=== PATIENT | female | born 2000 | race Caucasian/White ===

== ENCOUNTER 2024-07-28 15:11 | Outpatient (AMB) | payer MEDICAID, SELFPAY ==
--- NOTE | 2024-07-28 15:23 | OBCLNT_ITS ---
Vital Signs 07/28/24 16:09 Height 1.65 m Height Method Stated Weight 90.038 kg Weight Measurement Method Standing Scale BMI 33.0 BP 116/70 Blood Pressure Source Automatic Cuff Blood Pressure Location Left Upper Arm Position Sitting Respiration 18 Pulse 72 Pulse Source Monitor Temp 98 F Temp Source Oral Pulse Oximetry (%) 99 Oxygen Delivery Method Room Air Allergies/Home Meds Allergies & Medications Allergies No Known Allergies Allergy (Verified 07/28/24 15:23) Medication Reconciliation prenat.vits,ambrosio,[id number] 1 tab PO QDAY 08/13/20 [History Confirmed 07/28/24] Intake Visit Data Collection New Patient or Established: Established Patient (seen at [facility] within 3 years) Reason for Visit:: obi Do You Feel Safe at Home: Yes Authorities Contacted: N/A PCP or OBGYN visit in last 3 months: Yes Last menstrual period: 01/06/24 Pain Present Currently: No Smoking Status Smoking Status: Never smoker Questionnaires Covid-19 Vaccine Questionnaire Has patient been vacinated for Covid-19 Have you been vacinated for Covid-19: No PHQ-9 PHQ-2 Over the last 2 weeks, how often have you been bothered by any of the following problems? 1. Little interest or pleasure in doing things: not at all 2. Feeling down, depressed, or hopeless: not at all Total score: 0 Depression screen completed yes Social History Living Situation History Marital Status: Life Partner Lives With: Family Housing: trailer Tobacco History Smoking Status: Never smoker Alcohol History Alcohol Intake: Never Domestic Abuse History Do You Feel Safe at Home: Yes History of Present Illness HPI Narrative 23-year-old 2 para 1 for OB transfer. Patient has been followed at [facility] for care. Her first visit was in the first trimester. Her last ultrasound at [facility] was June 09 so I called for those results. Patient has done a medical release. Records are still not in the chart. Patient denies social habits. Denies surgery. Denies chronic illness. She reports movement. She has complains of backache and other third trimester discomforts. Her last period January 05, 2025. And the TYRESE is October 10, 2024. Patient reports that she recently had her Glucola done and it was normal and she has had no problems with the . Declined Tdap today OB Initial Visit OB Flowsheet OB Flowsheet Initial Weight: Not Recorded Date -?-?-?-?-?-?-?-?-?-?-?-?- EGA Weight Edema CTX Effacement BP Fundal ht Pres Dilation Effacement Station Visit Note Alb Glu FHR Mov 07/28/24 -?-?-?-?-?-?-?-?-?-?-?-?- 29w 1d 90.038 kg absent absent 116/70 29 cephalic 23-year-old 2 para 1 transfer from [facility]. Patient had her first visit in the first trimester. Her last period January 05, 2025. EDC October 10, 2024. Records are not in the chart but patient reports that she has had a medical release to have the records sent. Reports movement. Denies labor. I called [facility] for patient's last ultrasound that was done June 09. I encourage fluids and I gave comfort measures for third trimester discomforts. Patient refused Tdap today. And I discussed labor precautions. Patient to return in 3 weeks for OB check. 145 active Menstrual History Menstrual reliability: definite Flow: normal Menstrual regularity: regular Monthly: Yes Age at menarche: 14 On control pills at conception: No Date of positive home test: 01/08/24 OB History : 2 Para: 1 # of Living Children: 1 Delivery History 1st : Child's name: jack date: 08/29/20 sex: male Delivery type: vaginal weight (lbs): 2721.554 g weight (oz): 311.845 g History of depression before or after : No Infection History & Risk Evaluation History of STDs: none HIV risk evaluation: low risk Hepatitis B risk evaluation: low risk Patient or partner has history of Genital Herpes: No Varicella/chicken pox status: immunized Genetic Screening & History Genetic Screening/Teratology Counseling - Includes patient, baby's father, or anyone in either family with: 1. Patient's age 35 years or older as of estimated date of delivery: No 2. Thalassemia (Cypriot, Welsh, Mediterranean, or Background); MCV less than 80: No 3. Neural Tube Defect (Meningomyelocele, Spina Bifida, or Anencephaly): No 4. Congenital Heart Defect: No 5. Down Syndrome: No 6. Chip-Sachs (Ashkenazi Cheondoism, Cajun, Vietnamese Boyle): No 7. Marcelino Disease (Ashkenazi Cheondoism): No 8. Familial Dysautonomia (Ashkenazi Cheondoism): No 9. Sickle Cell Disease or Trait (): No 10. Hemophilia or other blood disorders: No 11. Muscular Dystrophy: No 12. Cystic Fibrosis: No 13. Gisela's Chorea: No 14. Mental Retardation/Autism: No 15. Other inherited genetic or chromosomal disorder: No 16. Maternal Metabolic Disorder (EG,TYPE 1 Diabetes, PKU): No 17. Patient or baby's father had a child with defects not listed above: No 18. Recurrent loss or a stillbirth: No 19. Medications (including supplements, vitamins, herbs or otc drugs)/illicit/recreational drugs/alcohol since last menstrual period: No 20. Any other: No Infection History 1. Live with someone with TB or exposed to TB: No 2. Rash or viral illness since last menstrual period: No 3. Hepatitis B,C: No Other (see comments) Source: [employer] Review of Systems Review of Systems Systems Reviewed: All systems reviewed, normal except as documented Exam General Limitations: no limitations General Appearance: alert, in no apparent distress, comfortable, cooperative, healthy appearing, well developed and well groomed Head Head exam: atraumatic, normocephalic and normal inspection Chest Chest inspection: Present normal inspection and symmetric chest wall rise Resp Respiratory exam: Present normal lung sounds bilaterally Card Cardiovascular exam: Present regular rate, normal rhythm and normal heart sounds Abdominal Abdominal exam: Present soft and normal bowel sounds Psych Psychiatric exam: Present normal affect and normal mood Assessment & Plan Diagnosis / Problem List (1) Encounter for supervision of normal in multigravida in third trimester: Status: Acute Plan call for sono results done 06/09, medical release from [facility] for records. ptl precaution, continue PNV, Increase fluid, patient declined TDAP. 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
[2024-07-28 16:09] VITALS: BP 116/70; PULSE 72; RESP 18; TEMP 36.6; O2SAT 99; BMI 33.0
== END 2024-07-28 15:42 | disposition home or self-care (01) ==
LOC: HODSOBC 15:11
PROVIDERS: Supervising Provider Advanced Practice Midwife; Visit Provider Advanced Practice Midwife
DX: Z34.83 Encounter for supervision of other normal pregnancy, third trimester (principal); Z3A.29 29 weeks gestation of pregnancy
CPT/HCPCS: 99204; G0463

== ENCOUNTER 2024-08-18 14:57 | Outpatient (AMB) | payer MEDICAID, SELFPAY ==
[2024-08-18 15:38] VITALS: BP 109/70; PULSE 90; RESP 18; TEMP 36.6; O2SAT 97; BMI 32.1
--- NOTE | 2024-08-18 15:38 | OBCLNT_ITS ---
Vital Signs 08/18/24 15:38 Height 1.65 m Height Method Stated Weight 87.657 kg Weight Measurement Method Standing Scale BMI 32.1 BP 109/70 Blood Pressure Source Automatic Cuff Blood Pressure Location Right Upper Arm Position Sitting Respiration 18 Pulse 90 Pulse Source Monitor Temp 98 F Temp Source Oral Pulse Oximetry (%) 97 Oxygen Delivery Method Room Air Allergies/Home Meds Allergies & Medications Allergies No Known Allergies Allergy (Verified 08/18/24 15:39) Medication Reconciliation prenat.vits,ambrosio,[id number] 1 tab PO QDAY 08/13/20 [History Confirmed 08/18/24] Intake Visit Data Collection New Patient or Established: Established Patient (seen at [facility] within 3 years) Reason for Visit:: CARE Seen by Clinical Staff ONLY (RN/MA): No Voip Network Technician Required: No Do You Feel Safe at Home: Yes Authorities Contacted: N/A PCP or OBGYN visit in last 3 months: Yes Hx Now: Yes Are you currently on any form of Control: No Pain Present Currently: No Pain Scale Used: Ortega-Ivy/Numerical Pain scale:: 0 Smoking Status Smoking Status: Never smoker Questionnaires Covid-19 Vaccine Questionnaire Has patient been vacinated for Covid-19 Have you been vacinated for Covid-19: Yes PHQ-9 PHQ-2 Over the last 2 weeks, how often have you been bothered by any of the following problems? 1. Little interest or pleasure in doing things: not at all 2. Feeling down, depressed, or hopeless: not at all Total score: 0 PHQ-9 3. Trouble falling or staying asleep, or sleeping too much: Not at all 4. Feeling tired or having little energy: Not at all 5. Poor appetite or overeating: Not at all 6. Feeling bad about yourself - or that you are a failure or have let yourself or your family down: Not at all 7. Trouble concentrating on things, such as reading the newspaper or watching television: Not at all 8. Moving or speaking so slowly that other people could have noticed? - Or the opposite - being so fidgety or restless that you have been moving around a lot more than usual: not at all 9. Thoughts that you would be better off or of hurting yourself in some way: Not at all Total score: 0 Source: Developed by Drs. Vikram Zaman, Amaya Cantu, Attila Lopez and colleagues, with an educational elizabeth from [employer]. 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 Patient had her first visit in the first trimester. Her last period January 05, 2025. EDC October 10, 2024. Records are not in the chart but patient reports that she has had a medical release to have the records sent. Reports movement. Denies labor. I called [facility] for patient's last ultrasound that was done June 09. I encourage fluids and I gave comfort measures for third trimester discomforts. Patient refused Tdap today. And I discussed labor precautions. Patient to return in 3 weeks for OB check. 08/18/24 -?-?-?-?-?-?-?-?-?-?-?-?- 31w 2d 87.657 kg 109/70 occasional cephalic 31 135 increased BH, no LOF,no VB, fetus active reviewed dates, [facility] sono: 3edd 10/21/24. sono for growth NV, hydrate. discuss PTL precaution, schedule with OB PP for BTL. ok to sign BTL consent in case of primary c/s. refused TDAP. will call for records. discuss PTL precaution and fkc biD. RTC 2 week OBC TYRESE Calculator Estimated Delivery Date Method Current WG Current Estimate 10/18/24 Ultrasound #1 31w 2d Other Estimates 10/12/24 LMP (Certain) 32w 1d Notes Visit Date: 08/18/24 Last Updated by: Montse Howe CNM [facility] sono 06/09/24: 21w2. EDC : 10/20/24(CEDD). 23 yo Visit Date: 07/28/24 Last Updated by: Montse Howe CNM 23 yo . lmp 01/05/25. EDC 10/10/24 Office Procedures OB Clinic LOC & Office Proc's Nursing/Assessment Patient Status: Established Patient OB Clinic Nursing Assessment: Medication Reconciliation, Update PMH in EMR and Vital Signs OB Clinic Coordination of Care: Complex Care and Chronic Disease 1-5, Consent,records obtained, informed consent, Education Simp Pt/Fam, Lab and Imaging orders, Results/Orders obtained and Staff clarify orders Special Needs: Heart tones Established Patient Charge Established Patient Point Assignment: 135 Established Patient Point Charge: EP Level 4 (120-155) Assessment & Plan Diagnosis / Problem List (1) Encounter for supervision of normal in multigravida in third trimester: Status: Acute Plan ptl precaution, discuss fkc, increase fluid. patient to see OB for BTL consent. sign consent nvcontinue PNV, RTC 2 week, sono for growth NV Additional Plan Follow Up: 2 Weeks (obc)
== END 2024-08-18 16:13 | disposition home or self-care (01) ==
LOC: HODSOBC 14:57
PROVIDERS: Supervising Provider Advanced Practice Midwife; Visit Provider Advanced Practice Midwife
DX: Z34.83 Encounter for supervision of other normal pregnancy, third trimester (principal); Z3A.31 31 weeks gestation of pregnancy; Z28.21 Immunization not carried out because of patient refusal
CPT/HCPCS: 99214; G0463

== ENCOUNTER 2024-09-01 14:32 | Outpatient (AMB) | payer MEDICAID, SELFPAY ==
[2024-09-01 15:27] VITALS: BP 109/67; PULSE 79; RESP 18; TEMP 36; O2SAT 98; BMI 32.6
--- NOTE | 2024-09-01 15:27 | AMB.OBVISIT ---
Vital Signs 09/01/24 15:27 Height 1.65 m Height Method Stated Weight 88.904 kg Weight Measurement Method Standing Scale BMI 32.6 BP 109/67 Blood Pressure Source Automatic Cuff Blood Pressure Location Left Upper Arm Position Sitting Respiration 18 Pulse 79 Pulse Source Monitor Temp 96.8 F Temp Source Oral Pulse Oximetry (%) 98 Oxygen Delivery Method Room Air Allergies/Home Meds Allergies & Medications Allergies No Known Allergies Allergy (Verified 09/01/24 15:27) Medication Reconciliation prenat.vits,ambrosio,qzi-bhlv-eewne 1 tab PO QDAY 08/13/20 [History Confirmed 09/01/24] Intake Visit Data Collection New Patient or Established: Established Patient (seen at [facility] within 3 years) Reason for Visit:: OBC Seen by Clinical Staff ONLY (RN/MA): No Senior 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 1. Little interest or pleasure in doing things: not at all 2. Feeling down, depressed, or hopeless: not at all Total score: 0 PHQ-9 3. Trouble falling or staying asleep, or sleeping too much: Not at all 4. Feeling tired or having little energy: Not at all 5. Poor appetite or overeating: Not at all 6. Feeling bad about yourself - or that you are a failure or have let yourself or your family down: Not at all 7. Trouble concentrating on things, such as reading the newspaper or watching television: Not at all 8. Moving or speaking so slowly that other people could have noticed? - Or the opposite - being so fidgety or restless that you have been moving around a lot more than usual: not at all 9. Thoughts that you would be better off or of hurting yourself in some way: Not at all Total score: 0 If you checked off any problems, how difficult have these problems made it for you to do your work, take care of things at home, or get along with other people?: not difficult at all Source: Developed by Drs. Vikram Zaman, Amaya Cantu, Attila Lopez and colleagues, with an educational elizabeth from [employer]. 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 Patient had her first visit in the first trimester. Her last period January 05, 2025. EDC October 10, 2024. Records are not in the chart but patient reports that she has had a medical release to have the records sent. Reports movement. Denies labor. I called [facility] for patient's last ultrasound that was done June 09. I encourage fluids and I gave comfort measures for third trimester discomforts. Patient refused Tdap today. And I discussed labor precautions. Patient to return in 3 weeks for OB check. 08/18/24 <del>?</del> 31w 2d 87.657 kg 109/70 occasional cephalic 31 135 increased BH, no LOF,no VB, fetus active reviewed dates, [facility] sono: 3edd 10/21/24. sono for growth NV, hydrate. discuss PTL precaution, schedule with OB PP for BTL. ok to sign BTL consent in case of primary c/s. refused TDAP. will call for records. discuss PTL precaution and fkc biD. RTC 2 week OBC 09/01/24 <del>?</del> 33w 2d 88.904 kg 109/67 occasional cephalic 33 135 active increased ayaka ick, no VB or LOF, fetus active. patient desire BTL refused TDAP schedule sono for growth, discuss ptl precaution, hydrate. f/u with OB for tubal consent. rtc 4 week OBC and GBS TYRESE Calculator Estimated Delivery Date Method Current WG Current Estimate 10/18/24 Ultrasound #1 33w 2d Other Estimates 10/12/24 LMP (Certain) 34w 1d Notes Visit Date: 09/01/24 Last Updated by: Montse Howe CNM 23 y0 EDC 10/18/24. /, A1: 5.3, rpr:: NR, 1 hr gtt [id number]-DUD-,CF-O+,abs-, rpr;;nr, HBSAG-,HIV-, HC-, rub imm, GC/CT-, UT-, pap neg Visit Date: 08/18/24 Last Updated by: Montse Howe CNM [facility] sono 06/09/24: 21w2. EDC : 10/20/24(CEDD). 23 yo Visit Date: 07/28/24 Last Updated by: Montse Howe CNM 23 yo . lmp 01/05/25. EDC 10/10/24 Office Procedures OB Clinic LOC & Office Proc's Nursing/Assessment Patient Status: Established Patient OB Clinic Nursing Assessment: Medication Reconciliation, Update PMH in EMR and Vital Signs OB Clinic Coordination of Care: Education Complex Pt/Fam, Consent,records obtained, informed consent, Lab and Imaging orders, Results/Orders obtained and Staff clarify orders Special Needs: Heart tones Established Patient Charge Established Patient Point Assignment: 115 Established Patient Point Charge: EP Level 3 (80-115) Assessment & Plan Diagnosis / Problem List (1) Encounter for supervision of normal in multigravida in third trimester: Status: Acute Plan discuss PTL precaution, fkc bid reviewed, decline TDAP, schedule with OB for BTL consent, hydrate, schedule sono for growth, RTC 4 week for OBC and GBS Additional Plan Follow Up: 4 Weeks (obc)
== END 2024-09-01 15:19 | disposition home or self-care (01) ==
LOC: HODSOBC 14:32
PROVIDERS: Supervising Provider Advanced Practice Midwife; Visit Provider Advanced Practice Midwife
DX: Z34.83 Encounter for supervision of other normal pregnancy, third trimester (principal); Z3A.33 33 weeks gestation of pregnancy; Z28.21 Immunization not carried out because of patient refusal
CPT/HCPCS: 99213; G0463

== ENCOUNTER 2024-09-16 13:39 | Outpatient (AMB) | payer MEDICAID, SELFPAY ==
[2024-09-16 14:00] VITALS: BP 113/67; PULSE 79; RESP 17; TEMP 36.4; O2SAT 96; BMI 32.8
--- NOTE | 2024-09-16 14:00 | AMB.OBVISIT ---
Vital Signs 09/16/24 14:00 Height 1.65 m Height Method Stated Weight 89.471 kg Weight Measurement Method Standing Scale BMI 32.8 BP 113/67 Blood Pressure Source Automatic Cuff Blood Pressure Location Right Upper Arm Position Sitting Respiration 17 Pulse 79 Pulse Source Monitor Temp 97.6 F Temp Source Temporal Artery Scan Pulse Oximetry (%) 96 Oxygen Delivery Method Room Air Allergies/Home Meds Allergies & Medications Allergies No Known Allergies Allergy (Verified 09/16/24 14:23) Medication Reconciliation prenat.vits,ambrosio,vnn-kuwa-zldgc 1 tab PO QDAY 08/13/20 [History Confirmed 09/16/24] Intake Visit Data Collection New Patient or Established: Established Patient (seen at [facility] within 3 years) Reason for Visit:: OBC/ GBS Seen by Clinical Staff ONLY (RN/MA): No 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 1. Little interest or pleasure in doing things: not at all 2. Feeling down, depressed, or hopeless: not at all Total score: 0 PHQ-9 3. Trouble falling or staying asleep, or sleeping too much: Not at all 4. Feeling tired or having little energy: Not at all 5. Poor appetite or overeating: Not at all 6. Feeling bad about yourself - or that you are a failure or have let yourself or your family down: Not at all 7. Trouble concentrating on things, such as reading the newspaper or watching television: Not at all 8. Moving or speaking so slowly that other people could have noticed? - Or the opposite - being so fidgety or restless that you have been moving around a lot more than usual: not at all 9. Thoughts that you would be better off or of hurting yourself in some way: Not at all Total score: 0 If you checked off any problems, how difficult have these problems made it for you to do your work, take care of things at home, or get along with other people?: not difficult at all Source: Developed by Drs. Vikram Zaman, Amaya Cantu, Attila Lopez and colleagues, with an educational elizabeth from [employer]. 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 No contractions, LOF, VB and reports good FM. Denies SMITH, VC, and epigastric pain. - Shell Ruelas is a 24-year-old presenting for routine care at 36 weeks and 2 days gestation. - has been uncomplicated thus far. - Patient reports: - No contractions - No problems - Baby is active - Denies: - Leaking fluid - Bleeding Care OB Visit Log OB Flowsheet Initial Weight: Not Recorded Date <del>?</del> EGA Weight BP Alb Glu CTX Pres Fundal ht FHR Mov Dilation Station Effacement Hx Notes Visit Note 07/28/24 <del>?</del> 29w 1d 90.038 kg 116/70 absent cephalic 29 145 active 23-year-old 2 para 1 transfer from [facility]. Patient had her first visit in the first trimester. Her last period January 05, 2025. EDC October 10, 2024. Records are not in the chart but patient reports that she has had a medical release to have the records sent. Reports movement. Denies labor. I called [facility] for patient's last ultrasound that was done June 09. I encourage fluids and I gave comfort measures for third trimester discomforts. Patient refused Tdap today. And I discussed labor precautions. Patient to return in 3 weeks for OB check. 08/18/24 <del>?</del> 32w 1d 87.657 kg 109/70 occasional cephalic 31 135 increased BH, no LOF,no VB, fetus active reviewed dates, MFM sono: 3edd 10/21/24. sono for growth NV, hydrate. discuss PTL precaution, schedule with OB PP for BTL. ok to sign BTL consent in case of primary c/s. refused TDAP. will call for records. discuss PTL precaution and fkc biD. RTC 2 week OBC 09/01/24 <del>?</del> 34w 1d 88.904 kg 109/67 occasional cephalic 33 135 active increased ayaka ick, no VB or LOF, fetus active. patient desire BTL refused TDAP schedule sono for growth, discuss ptl precaution, hydrate. f/u with OB for tubal consent. rtc 4 week OBC and GBS 09/16/24 <del>?</del> 36w 2d 89.471 kg 113/67 occasional cephalic 36 140 active No CTX/LOF/VB, reports good FM. FHR 130?135. GBS swab performed FU with CNM 09/23. Advised to monitor for labor signs including CTX, LOF, VB, ?FM and present to L&D if any occur. TYRESE Calculator Estimated Delivery Date Method Current WG Current Estimate 10/12/24 LMP (Certain) 36w 2d Other Estimates 10/18/24 Ultrasound #1 35w 3d Notes Visit Date: 09/01/24 Last Updated by: Montse Howe, ANTHONY 23 y0 EDC 10/18/24. /330, A1: 5.3, rpr:: NR, 1 hr gtt [id number]-PVHR-TAL-,CF-O+,abs-, rpr;;nr, HBSAG-,HIV-, HC-, rub imm, GC/CT-, UT-, pap neg Visit Date: 08/18/24 Last Updated by: Montse Howe CNM [facility] sono 06/09/24: 21w2. EDC : 10/20/24(CEDD). 23 yo Visit Date: 07/28/24 Last Updated by: Montse Howe CNM 23 yo . lmp 01/05/25. EDC 10/10/24 Exam General General Appearance: alert, in no apparent distress and healthy appearing Head Head exam: atraumatic Neck Neck exam: Present normal inspection and trachea midline Chest Chest inspection: Present normal inspection and symmetric chest wall rise External exam: Present normal external exam; Absent tenderness Neuro Neurological exam: Present oriented X3 Psych Psychiatric exam: Present normal affect and normal mood Office Procedures OB Clinic LOC & Office Proc's Nursing/Assessment Patient Status: Established Patient OB Clinic Nursing Assessment: Medication Reconciliation, Update PMH in EMR and Vital Signs OB Clinic Coordination of Care: Complex Care and Chronic Disease 1-5, Consent,records obtained, informed consent, Education Simp Pt/Fam, Lab and Imaging orders and Staff clarify orders Special Needs: Heart tones Established Patient Charge Established Patient Point Assignment: 130 Established Patient Point Charge: EP Level 4 (120-155) Assessment & Plan Diagnosis / Problem List Plan Problem List - , 36 weeks and 2 days gestation Assessment at 36 weeks and 2 days gestation (corrected from 35 weeks 3 days) presenting for routine care. has been uncomplicated thus far. heart rate auscultated at 130-135 bpm, which is within normal range. Patient reports good movement and denies contractions, vaginal bleeding, or leaking fluid. Group B Streptococcus (GBS) swab was performed during the visit. Plan - Follow up appointment scheduled with Montse SAENZ) on September 23 (sunday) - Group B Streptococcus (GBS) swab performed - Patient instructed to monitor for signs of labor: contractions, leaking fluid, bleeding, or decreased movement - Patient advised to come to the hospital if experiencing any of the above symptoms 1. Progress Reviewed gestational age, growth, and heart rate. Planned frequent visits (every 2 weeks until 36 weeks, then weekly). 2. Instructed patient to monitor movements and report decreases immediately. 3. Testing Counseled on routine third-trimester labs per guidelines. Discussed potential need for ultrasound or monitoring based on risk factors. 4. Preeclampsia Precaution Educated on preeclampsia signs: severe headache, vision changes, right upper quadrant pain, sudden swelling. Advised urgent reporting of symptoms and discussed blood pressure monitoring if high risk. 5. Labor Precautions Reviewed labor signs: regular contractions, pelvic pressure, back pain, bleeding, or fluid leakage. Instructed to seek immediate care for these symptoms. 6. Lifestyle and Delivery Preparation Reinforced vitamins, nutrition, and safe activity. Discussed plan, pain management, and . Advised on labor preparation (e.g., hospital bag) and expectations. 7. Psychosocial Support Assessed emotional well-being and offered resources for mental health or parenting support.
== END 2024-09-16 14:15 | disposition home or self-care (01) ==
LOC: HODSOBC 13:39
PROVIDERS: Supervising Provider Obstetrics & Gynecology; Visit Provider Obstetrics & Gynecology
DX: Z34.83 Encounter for supervision of other normal pregnancy, third trimester (principal); Z3A.36 36 weeks gestation of pregnancy; Z36.85 Encounter for antenatal screening for Streptococcus B
CPT/HCPCS: 99214; G0463

== ENCOUNTER 2024-09-23 14:05 | Outpatient (AMB) | payer MEDICAID, SELFPAY ==
[2024-09-23 14:13] VITALS: BP 120/77; PULSE 89; RESP 17; TEMP 36.5; O2SAT 97; BMI 33.5
--- NOTE | 2024-09-23 14:13 | OBCLNT_ITS ---
Vital Signs 09/23/24 14:13 Height 1.65 m Height Method Measured Weight 91.172 kg Weight Measurement Method Standing Scale BMI 33.5 BP 120/77 Blood Pressure Source Automatic Cuff Blood Pressure Location Right Upper Arm Position Sitting Respiration 17 Pulse 89 Pulse Source Monitor Temp 97.7 F Temp Source Temporal Artery Scan Pulse Oximetry (%) 97 Oxygen Delivery Method Room Air Allergies/Home Meds Allergies & Medications Allergies No Known Allergies Allergy (Verified 09/23/24 14:19) Medication Reconciliation prenat.vits,ambrosio,dkw-dwqv-srqph 1 tab PO QDAY 08/13/20 [History Confirmed ] Intake Visit Data Collection New Patient or Established: Established Patient (seen at [facility] within 3 years) Reason for Visit:: OBC WEEKLY Consent obtained for Telemed Visit: No Seen by Clinical Staff ONLY (RN/MA): No Uppers Edge Burnisher Required: No Do You Feel Safe at Home: Yes Authorities Contacted: N/A PCP or OBGYN visit in last 3 months: Yes Date of Last PCP or OBGYN visit: 09/16/24 Hx Now: Yes Are you currently on any form of Control: No Pain Present Currently: No Pain Scale Used: Ortega-Ivy/Numerical Pain scale:: 0 Smoking Status Smoking Status: Never smoker Questionnaires Covid-19 Vaccine Questionnaire Has patient been vacinated for Covid-19 Have you been vacinated for Covid-19: No PHQ-9 PHQ-2 Over the last 2 weeks, how often have you been bothered by any of the following problems? 1. Little interest or pleasure in doing things: not at all PHQ-9 8. Moving or speaking so slowly that other people could have noticed? - Or the opposite - being so fidgety or restless that you have been moving around a lot more than usual: not at all Source: Developed by Drs. Vikram Zaman, Amaya Cantu, Attila Lopez and colleagues, with an educational elizabeth from [employer]. 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 Patient had her first visit in the first trimester. Her last period January 05, 2025. EDC October 10, 2024. Records are not in the chart but patient reports that she has had a medical release to have the records sent. Reports movement. Denies labor. I called [facility] for patient's last ultrasound that was done June 09. I encourage fluids and I gave comfort measures for third trimester discomforts. Patient refused Tdap today. And I discussed labor precautions. Patient to return in 3 weeks for OB check. 08/18/24 -?-?-?-?-?-?-?-?-?-?-?-?- 32w 1d 87.657 kg 109/70 occasional cephalic 31 135 increased BH, no LOF,no VB, fetus active reviewed dates, M sono: 3edd 10/21/24. sono for growth NV, hydrate. discuss PTL precaution, schedule with OB PP for BTL. ok to sign BTL consent in case of primary c/s. refused TDAP. will call for records. discuss PTL precaution and fkc biD. RTC 2 week OBC 09/01/24 -?-?-?-?-?-?-?-?-?-?-?-?- 34w 1d 88.904 kg 109/67 occasional cephalic 33 135 active increased ayaka ick, no VB or LOF, fetus active. patient desire BTL refused TDAP schedule sono for growth, discuss ptl precaution, hydrate. f/u with OB for tubal consent. rtc 4 week OBC and GBS 09/16/24 -?-?-?-?-?-?-?-?-?-?-?-?- 36w 2d 89.471 kg 113/67 occasional cephalic 36 140 active No CTX/LOF/VB, reports good FM. FHR 130?135. GBS swab performed FU with ANTHONY 09/23. Advised to monitor for labor signs including CTX, LOF, VB, ?FM and present to L&D if any occur. 09/23/24 -?-?-?-?-?-?-?-?-?-?-?-?- 37w 2d 91.172 kg 120/77 occasional cephalic 37 145 active fetus active, increase pressure, gbs last visit, discuss fkc bid and labor precaution, denies leaking or bleeding per patient, GBS done last visit, r/s mfm sono for growth to Dr Cruz, discuss labor precaution and fkc, discuss danger s/s and ER precaution TYRESE Calculator Estimated Delivery Date Method Current WG Current Estimate 10/12/24 LMP (Certain) 37w 2d Other Estimates 10/18/24 Ultrasound #1 36w 3d Notes Visit Date: 09/01/24 Last Updated by: Montse Howe CNM 23 y0 EDC 10/18/24. 1134/330, A1: 5.3, rpr:: NR, 1 hr gtt yxtHRX-ACAL-DIM-,CF-O+,abs-, rpr;;nr, HBSAG-,HIV-, HC-, rub imm, GC/CT-, UT-, pap neg Visit Date: 08/18/24 Last Updated by: Montse Howe CNM [facility] sono 06/09/24: 21w2. EDC : 10/20/24(CEDD). 23 yo Visit Date: 07/28/24 Last Updated by: Montse Howe CNM 23 yo . lmp 01/05/25. EDC 10/10/24 Office Procedures OB Clinic LOC & Office Proc's Nursing/Assessment Patient Status: Established Patient OB Clinic Nursing Assessment: Medication Reconciliation, Update PMH in EMR and Vital Signs OB Clinic Coordination of Care: Complex Care and Chronic Disease 1-5, Consent,records obtained, informed consent, Education Simp Pt/Fam and 4+ Authori zations needed Special Needs: Heart tones Miscellaneous Interventions: Blood/Urine Collection Established Patient Charge Established Patient Point Assignment: 160 Established Patient Point Charge: EP Level 5 (160-above) Assessment & Plan Diagnosis / Problem List (1) Encounter for supervision of normal in multigravida in third trimester: Status: Acute Plan discuss labor precaution, fkc bid, r/s MFM appointment with Dr Cruz. hydrate. rtc 1 week obc Additional Plan Follow Up: 1 Week (obc)
== END 2024-09-23 14:52 | disposition home or self-care (01) ==
LOC: HODSOBC 14:05
PROVIDERS: Supervising Provider Advanced Practice Midwife; Visit Provider Advanced Practice Midwife
DX: Z34.83 Encounter for supervision of other normal pregnancy, third trimester (principal); Z3A.37 37 weeks gestation of pregnancy
CPT/HCPCS: 99215; G0463

== ENCOUNTER 2024-09-30 18:30 | Outpatient (CLI) | payer MEDICAID, SELFPAY ==
[2024-09-30] VITALS (12 sets, daily range): BP systolic 109–129; BP diastolic 63–79; PULSE 81–102; RESP 19–97; TEMP 37.2; O2SAT 96–98; BMI 33.3
--- NOTE | 2024-09-30 18:40 | XR_ITS ---
Examination: Biophysical profile, ultrasound Date and time of exam: September 30, 2024 1944 hours INDICATIONS: Diagnosis growth retardation Technique: Multiple transabdominal sonographic images of the pelvis abdomen obtained. Attention is directed to the breathing movement, gross body movement, amniotic fluid volume and tone. Findings: Amniotic fluid index 8.3 cm Total biophysical profile is 8 of 8. breathing movement is 2. Gross body movement is 2. tone is 2. Qualitative amniotic fluid volume is 2 Impression: Biophysical profile is 8 of 8.
== END 2024-09-30 20:42 | disposition home or self-care (01) ==
LOC: S4S1 18:33 → S4SX 18:34
PROVIDERS: Referring Provider Advanced Practice Midwife; Visit Provider Advanced Practice Midwife
DX: Z34.83 Encounter for supervision of other normal pregnancy, third trimester (principal); Z36.9 Encounter for antenatal screening, unspecified; Z3A.37 37 weeks gestation of pregnancy
CPT/HCPCS: 59025; 76819

== ENCOUNTER 2024-10-01 08:56 | Outpatient (AMB) | payer MEDICAID, SELFPAY ==
[2024-10-01 09:02] VITALS: BP 121/77; PULSE 84; RESP 17; TEMP 36.6; O2SAT 96; BMI 33.1
--- NOTE | 2024-10-01 09:02 | AMB.OBVISIT ---
Vital Signs 10/01/24 09:02 Height 1.65 m Height Method Measured Weight 90.265 kg Weight Measurement Method Standing Scale BMI 33.1 BP 121/77 Blood Pressure Source Automatic Cuff Blood Pressure Location Right Upper Arm Position Sitting Respiration 17 Pulse 84 Pulse Source Monitor Temp 97.8 F Temp Source Temporal Artery Scan Pulse Oximetry (%) 96 Oxygen Delivery Method Room Air Allergies/Home Meds Allergies & Medications Allergies No Known Allergies Allergy (Verified 10/01/24 09:03) Medication Reconciliation prenat.vits,ambrosio,pnx-vcne-zsyxe 1 tab PO QDAY 08/13/20 [History Confirmed 10/01/24] Intake Visit Data Collection New Patient or Established: Established Patient (seen at [facility] within 3 years) Reason for Visit:: OBC Consent obtained for Telemed Visit: No Seen by Clinical Staff ONLY (RN/MA): No Operating Room Technologist Required: No Do You Feel Safe at Home: Yes Authorities Contacted: N/A PCP or OBGYN visit in last 3 months: Yes Date of Last PCP or OBGYN visit: 09/30/24 Hx Now: Yes Are you currently on any form of Control: No Pain Present Currently: No Pain Scale Used: Ortega-Ivy/Numerical Pain scale:: 0 Smoking Status Smoking Status: Never smoker Questionnaires Covid-19 Vaccine Questionnaire Has patient been vacinated for Covid-19 Have you been vacinated for Covid-19: No PHQ-9 PHQ-2 Over the last 2 weeks, how often have you been bothered by any of the following problems? 1. Little interest or pleasure in doing things: not at all PHQ-9 8. Moving or speaking so slowly that other people could have noticed? - Or the opposite - being so fidgety or restless that you have been moving around a lot more than usual: not at all Source: Developed by Drs. Vikram Zaman, Amaya Cantu, Attila Lopez and colleagues, with an educational elizabeth from [employer]. 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. Patient had her first visit in the first trimester. Her last period January 05, 2025. EDC October 10, 2024. Records are not in the chart but patient reports that she has had a medical release to have the records sent. Reports movement. Denies labor. I called [facility] for patient's last ultrasound that was done June 09. I encourage fluids and I gave comfort measures for third trimester discomforts. Patient refused Tdap today. And I discussed labor precautions. Patient to return in 3 weeks for OB check. 08/18/24 <del>?</del> 31w 2d 87.657 kg 109/70 occasional cephalic 31 135 increased BH, no LOF,no VB, fetus active reviewed dates, MFM sono: 3edd 10/21/24. sono for growth NV, hydrate. discuss PTL precaution, schedule with OB PP for BTL. ok to sign BTL consent in case of primary c/s. refused TDAP. will call for records. discuss PTL precaution and fkc biD. RTC 2 week OBC 09/01/24 <del>?</del> 33w 2d 88.904 kg 109/67 occasional cephalic 33 135 active increased ayaka ick, no VB or LOF, fetus active. patient desire BTL refused TDAP schedule sono for growth, discuss ptl precaution, hydrate. f/u with OB for tubal consent. rtc 4 week OBC and GBS 09/16/24 <del>?</del> 35w 3d 89.471 kg 113/67 occasional cephalic 36 140 active No CTX/LOF/VB, reports good FM. FHR 130?135. GBS swab performed FU with CNM 09/23. Advised to monitor for labor signs including CTX, LOF, VB, ?FM and present to L&D if any occur. 09/23/24 <del>?</del> 36w 3d 91.172 kg 120/77 occasional cephalic 37 145 active fetus active, increase pressure, gbs last visit, discuss fkc bid and labor precaution, denies leaking or bleeding per patient, GBS done last visit, r/s mfm sono for growth to Dr Cruz, discuss labor precaution and fkc, discuss danger s/s and ER precaution 10/01/24 <del>?</del> 37w 4d 90.265 kg 121/77 occasional cephalic 37 140 active fetus active, denies VB,leaking,bleeding. MFM with Dr Cruz: overall EFW 12%. AC: 2.7%. Normal doppler. patient [facility]. patient was not kept for AOL. No sono results were available with reults. results in chart today. reviewed with OB and discuss with patient. patient scheduled for IOL 10/04. NST/bpp bi weekly, schedule IOL 10/04/next available. review fkc bid, discuss labor precaution TYRESE Calculator Estimated Delivery Date Method Current WG Current Estimate 10/18/24 Ultrasound #1 37w 4d Other Estimates 10/12/24 LMP (Certain) 38w 3d Notes Visit Date: 09/01/24 Last Updated by: Montse Howe CNM 23 y0 EDC 10/18/24. /330, A1: 5.3, rpr:: NR, 1 hr gtt [id number]-VAVO-OMR-,CF-O+,abs-, rpr;;nr, HBSAG-,HIV-, HC-, rub imm, GC/CT-, UT-, pap neg Visit Date: 08/18/24 Last Updated by: Montse Howe CNM [facility] sono 06/09/24: 21w2. EDC : 10/20/24(CEDD). 23 yo Visit Date: 07/28/24 Last Updated by: Montse Howe CNM 23 yo . lmp 01/05/25. EDC 10/10/24 Office Procedures OB Clinic LOC & Office Proc's Nursing/Assessment Patient Status: Established Patient OB Clinic Nursing Assessment: Medication Reconciliation, Update PMH in EMR and Vital Signs OB Clinic Coordination of Care: Complex Care and Chronic Disease 1-5, Consent,records obtained, informed consent, Education Simp Pt/Fam, 4+ Authorizations needed and Staff clarify orders Special Needs: Heart tones Established Patient Charge Established Patient Point Assignment: 140 Established Patient Point Charge: EP Level 4 (120-155) Assessment & Plan Diagnosis / Problem List (1) Encounter for supervision of high risk in third trimester, antepartum: Status: Acute Plan discuss sono results with patient. review results with OB. schedule IOL 10/04. patient is aware. biweek NST/BPP. fkc bid, contineu pnv, hydrate. rtc 1 week if needed Additional Plan Follow Up: 1 Week (obc)
== END 2024-10-01 09:47 | disposition home or self-care (01) ==
LOC: HODSOBC 08:56
PROVIDERS: Supervising Provider Advanced Practice Midwife; Visit Provider Advanced Practice Midwife
DX: O09.93 Supervision of high risk pregnancy, unspecified, third trimester (principal); Z3A.37 37 weeks gestation of pregnancy
CPT/HCPCS: 99214; G0463

== ENCOUNTER 2024-10-02 15:59 | Observation (INO) | payer MEDICAID, SELFPAY ==
--- NOTE | 2024-10-02 15:57 | XR_ITS ---
Examination: Biophysical profile, ultrasound Date and time of exam: October 02, 2024 1618 hours INDICATIONS: Diagnosis intrauterine growth retardation Technique: Multiple transabdominal sonographic images of the pelvis abdomen obtained. Attention is directed to the breathing movement, gross body movement, amniotic fluid volume and tone. Findings: Amniotic fluid index 7.4 cm Total biophysical profile is 8 of 8. breathing movement is 2. Gross body movement is 2. tone is 2. Qualitative amniotic fluid volume is 2 Impression: Biophysical profile is 8 of 8.
[2024-10-02 16:17] VITALS: BP 118/73; PULSE 76
[2024-10-02 16:18] VITALS: BMI 33.5
[2024-10-02 16:19] VITALS: BP 118/73; PULSE 76; RESP 16; RESP 99; TEMP 36.7
--- NOTE | 2024-10-04 12:59 | PC.NURSE ---
pt on phone, informed of no bed available at this time, will need to call back at 2030, if bed becomes available before will call pt back, pt to come for NST/BPP while awaiting on bed, pt verbalized understanding
== END 2024-10-02 17:10 | disposition home or self-care (01) ==
LOC: S4S1 16:17 → S4SX 16:19
PROVIDERS: Admitting Provider Advanced Practice Midwife; Referring Provider Advanced Practice Midwife; Visit Provider Advanced Practice Midwife
DX: O36.5990 Maternal care for other known or suspected poor fetal growth, unspecified trimester, not applicable or unspecified (principal); Z3A.00 Weeks of gestation of pregnancy not specified
CPT/HCPCS: 59025; 59899; 76819

== ENCOUNTER 2024-10-04 15:08 | Observation (INO) | payer MEDICAID, SELFPAY ==
[2024-10-04] VITALS (7 sets, daily range): BP systolic 121; BP diastolic 78; PULSE 79–101; RESP 18–98; TEMP 36.3; O2SAT 88–99; BMI 33.3
--- NOTE | 2024-10-04 15:15 | XR_ITS ---
Examination: Biophysical profile, ultrasound Date and time of exam: October 04, 2024, 1539 hrs. Indications: Labor induction today Technique: Multiple transabdominal sonographic images of the pelvis abdomen obtained. Attention is directed to the breathing movement, gross body movement, amniotic fluid volume and tone. Findings: Amniotic fluid index 7.9 cm Total biophysical profile is 8 of 8. breathing movement is 2. Gross body movement is 2. tone is 2. Qualitative amniotic fluid volume is 2 Impression: Biophysical profile is 8 of 8.
--- NOTE | 2024-10-04 16:10 | PC.NURSE ---
1778 discharge instructions, labor precautions, kick counts, copy given. instructed pt to call at 2030 to check on bed availability for iol. pt agrees/understands.
== END 2024-10-04 16:06 | disposition home or self-care (01) ==
PROVIDERS: Admitting Provider Advanced Practice Midwife; Visit Provider Advanced Practice Midwife
DX: Z34.83 Encounter for supervision of other normal pregnancy, third trimester (principal); Z3A.38 38 weeks gestation of pregnancy
CPT/HCPCS: 59025; 59899; 76819; G0378

== ENCOUNTER 2024-10-05 11:29 | Inpatient (IN) | payer MEDICAID, SELFPAY ==
[2024-10-05] VITALS (15 sets, daily range): BP systolic 112–130; BP diastolic 63–83; PULSE 61–78; RESP 16; TEMP 36.7–36.9; BMI 33.1
[2024-10-05] MEDS: RINGERS LACTATED 1000 ML 1,000 ML 100 ML IV (11:57)
--- NOTE | 2024-10-05 12:13 | XR_ITS ---
Examination: Complete OB ultrasound greater than 14 weeks Date and time of exam: October 05, 2024 1303 hrs. Indications: Preop labor induction, diagnosis intrauterine growth retardation Findings: Viable intrauterine single fetus with single amniotic sac presentation Vertex Cardiac motion 127 BPM Placenta fundal grade 3 Amniotic fluid index 11.0 cm spine maternal right Cervix and ovaries obscured by the fetus. Composite estimated gestational age based on BPD, head circumference, abdominal circumference, femur length is 34 weeks 2 days Estimated weight 1649 g. Survey of intracranial anatomy, spinal anatomy, abdominal anatomy, four-chamber heart performed with no abnormalities identified. Impression: Viable intrauterine gestation vertex presentation.
[2024-10-05 12:24] LABS: Basophils # (Auto) 0.0 Thou/mm3 (0.0-0.2); Basophils % (Auto) 0 % (0-2.5); Eosinophils # (Auto) 0.1 Thou/mm3 (0.0-0.5); Eosinophils % (Auto) 1 % (0-10); Hematocrit 35.9 % (36.0-46.0); Hemoglobin 12.3 g/dL (12.0-16.0); Immature Granulocytes Auto 0.02 Thou/mm3 (0.00-0.00); Lymphocytes # (Auto) 2.1 Thou/mm3 (1.0-4.8); Lymphocytes % (Auto) 27 % (10-50); Mean Corpuscular HGB Conc 34.3 g/dl (31.0-37.0); Mean Corpuscular Hemoglobin 29.3 pg (25.0-35.0); Mean Corpuscular Volume 86 fL (80-100); Monocytes # (Auto) 1.0 Thou/mm3 (0.0-0.8); Monocytes % (Auto) 13 % (0-12); Neutrophils # (Auto) 4.5 Thou/mm3 (1.8-7.7); Neutrophils % (Auto) 59 % (37-80); Nucleated Red Blood Cell # 0.00 Thou/mm3 (0.00-0.00); Nucleated Red Blood Cell % 0 /100 WBC (0); Platelet Count 275 Thou/mm3 (140-440); RDW Standard Deviation 42.5 fL (36.4-46.3); Red Blood Count 4.20 Miln/mm3 (4.00-5.20); White Blood Count 7.8 Thou/mm3 (3.6-11.0)
[2024-10-05 12:46] LABS: Syphilis Nonreactive (Nonreactive)
--- NOTE | 2024-10-05 14:11 | PD.LDHP ---
Documentation for date of: 10/05/24 OB Labor/Induct. HPI History of Present Illness Chief complaint: IOL for growth restriction : 2 Para: 1 Term pregnancies: 1 pregnancies: 0 Living children: 1 History of Abortions: Spontaneous and Elective: 0 History of Vaginal deliveries: 1 History of sections: No History of : No Date of last menstrual period: 01/05/25 TYRESE: 10/18/24 Gestational Age (weeks): 38 Gestational Age (days): 1 Gestational age based on last menstrual period: -13 History of present illness: This is a 24-year-old 2 para 1 admit to labor and delivery for induction of labor. Patient is been followed at [facility] medical clinic. She was a transfer of care from [facility] work at 29 weeks. Semester. January 11, 2024. Estimated due date October 18, 2024. Patient had a 21-week ultrasound in May at [facility] that confirmed dates. Patient then had an ultrasound on September [address] Cruz that showed the baby growing in the 12 percentile overall but the AC measured 2.[address] Alvarez sent the patient in to be induced because of intrauterine growth restriction. Patient denies social habits. Denies surgery. Denies chronic illness. Patient is O+, antibody screen negative, RPR nonreactive, rubella immune, hepatitis B negative, hep C negative, HIV negative, GC and Chlamydia were negative. 1 hour GTT normal. NIPT and carrier screens were normal. And GBS negative History of Present Dating criteria: LMP confirmed by 1st trimester US Adequate Care: No Ultrasounds: normal 1st trimester US and normal mid trimester US Obstetrical complications: none Medical complications: none Labs Labs: Positive: Rubella Titre, Negative: RPR, Hepatitis B, HIV, Chlamydia, Gonorrhea and Group Beta Strep and Unknown: Herpes Type 1, Herpes Type 2 and Covid-19 Review of Systems Review of Systems Systems Reviewed: All systems reviewed, normal except as documented Past Medical History Surgical History SURGICAL: Negative Section Meds Home Medications and Allergies Home Medications ?Medication ?Instructions ?Recorded ?Confirmed ?Type prenat.vits,ambrosio,xvo-wsld-plzpm 1 tab PO QDAY 08/13/20 10/01/24 History Allergies Allergy/AdvReac Type Severity Reaction Status Date / Time No Known Allergies Allergy Verified 10/01/24 09:03 OB Exam Physical Exam Vital signs: Temp Pulse BP 98.2 F 69 129/79 10/05/24 12:00 10/05/24 14:04 10/05/24 14:04 Narrative: Normal heart rate and rhythm. Lung lungs are clear no wheezes. Gravid abdomen. Gynecoid pelvis. Estimated weight 5 pounds. Vaginal exam admission was 50%, 1, mid. Soft -2. Vertex. Bag water intact. 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
[2024-10-06] VITALS (73 sets, daily range): BP systolic 97–143; BP diastolic 54–102; PULSE 64–103; RESP 14–18; TEMP 36.5–37; O2SAT 95–100
[2024-10-06] MEDS: RINGERS LACTATED 1000 ML 1,000 ML 100 ML IV (04:48)
[2024-10-06] MEDS: OXYTOCIN in NS 20 units 20 UNIT/1,000 ML BAG 125 UNIT IV (06:11)
[2024-10-06] MEDS: OXYTOCIN INJ 10 UNIT/ML VIAL IM (06:11)
[2024-10-06] MEDS: METHYLERGONOVINE INJ 0.2 MG/ML VIAL IM (06:16)
[2024-10-06] MEDS: BENZO/LANO/ALOE (Dermoplast) 60 GM CAN 1 SPRAY TOP (06:23)
[2024-10-06] MEDS: IBUPROFEN TAB 400 MG TABLET 800 MG PO (06:23)
--- NOTE | 2024-10-06 06:42 | OBDSUM_ITS ---
Data (Martinez) Data Hx Section: No : 2 Term: 1 : 0 Livin Abortions: Spontaneous & Theraputic: 0 Delivery Data (Martinez) Labor Data Initiation of labor: Induction Induction/Augmentation Agent: Cervidil ROM date: 10/06/24 ROM time: 05:58 Amniotic membrane rupture type: Artificial Amniotic fluid description: Clear Delivery Data EDC: 10/18/24 EDC calculated by:: LMP/early US confirmation Date of arrival to unit: 10/05/24 Time of arrival to unit: 11:29 Onset of labor date: 10/06/24 Onset of labor time: 03:50 Complete dilation date: 10/06/24 Complete dilation time: 05:58 delivery date: 10/06/24 delivery time: 06:08 Gestational age (weeks): 38 Gestational age (days): 1 Placenta delivery date: 10/06/24 Placenta delivery time: 06:11 Stage 1 total time: Labor - Stage 1 Duration 2 hours and 8 minutes Delivered by: Montse Howe Delivery nurse: Adilson Rocha RN [facility] nurse: Pili Glasgow Agronomy Specialist at delivery: Yes (Dr. Robison) Other staff at delivery: Tiffanie Sandoval RN Delivery Method Delivery method: Normal Vaginal Delivery Presentation: Vertex position: OA Anesthesia Type Anesthesia Type: Epidural Delivery Room Medications Delivery room medications: Methergine 0.2 mg IM, Pitocin 10 u IM, Pitocin 20 u IV, Cytotec 800 LA and other (TXA) Placenta Placenta delivery description: Spontaneous Cord blood sent to lab: Yes cord blood collection: Cord Blood Type Episiotomy Episiotomy description: None (intact) EBL Estimated blood loss (ml): 400 Umbilical Cord cord description: 3 Vessels Data (Martinez) [place] Data order: 1 's gender: Male weight (gms): 2490 g Weight (pounds): 5 lbs and 7.8 ozs [place] length: 19.5 cm 1 minute: 8 5 minutes: 9
[2024-10-06] MEDS: TRANEXAMIC ACID 1,000 MG IVPB 1,000 MG/100 ML BAG 200 MG IV ×2 (06:46→07:34)
[2024-10-06 15:41] LABS: Basophils # (Auto) 0.0 Thou/mm3 (0.0-0.2); Basophils % (Auto) 0 % (0-2.5); Eosinophils # (Auto) 0.0 Thou/mm3 (0.0-0.5); Eosinophils % (Auto) 0 % (0-10); Hematocrit 37.1 % (36.0-46.0); Hemoglobin 12.6 g/dL (12.0-16.0); Immature Granulocytes Auto 0.05 Thou/mm3 (0.00-0.00); Lymphocytes # (Auto) 2.1 Thou/mm3 (1.0-4.8); Lymphocytes % (Auto) 16 % (10-50); Mean Corpuscular HGB Conc 34.0 g/dl (31.0-37.0); Mean Corpuscular Hemoglobin 30.1 pg (25.0-35.0); Mean Corpuscular Volume 89 fL (80-100); Monocytes # (Auto) 1.6 Thou/mm3 (0.0-0.8); Monocytes % (Auto) 12 % (0-12); Neutrophils # (Auto) 9.3 Thou/mm3 (1.8-7.7); Neutrophils % (Auto) 71 % (37-80); Nucleated Red Blood Cell # 0.00 Thou/mm3 (0.00-0.00); Nucleated Red Blood Cell % 0 /100 WBC (0); Platelet Count 249 Thou/mm3 (140-440); RDW Standard Deviation 44.0 fL (36.4-46.3); Red Blood Count 4.18 Miln/mm3 (4.00-5.20); White Blood Count 13.1 Thou/mm3 (3.6-11.0)
[2024-10-06] MEDS: DOCUSATE SOD 100 MG CAPSULE PO (20:41)
[2024-10-07 04:00] VITALS: BP 113/69; PULSE 74; RESP 16; TEMP 36.7; O2SAT 98
--- NOTE | 2024-10-07 08:18 | ESPR_ITS ---
Subjective Subjective Interval history: No complaints of pain. No dizziness. Bonding. Baby is in the NICU for low blood sugar. Baby stable Exam Vital Signs Temp Pulse Resp BP Pulse Ox O2 Del Method 98.1 F 74 16 113/69 98 Room Air 10/07/24 04:00 10/07/24 04:00 10/07/24 04:00 10/07/24 04:00 10/07/24 04:00 10/07/24 04:00 Narrative Exam Vital signs stable afebrile. Breasts are soft. Fundus firm below the umbilicus. Perineum intact no swelling. Small lochia. Uterus well involuted. No swelling. Negative Homans' sign. 2+ DTRs Objective Labs 10/06/24 15:17 Labs: Laboratory Results - last 24 hr 10/06/24 15:17 WBC 13.1 H D RBC 4.18 Hgb 12.6 Hct 37.1 MCV 89 MCH 30.1 MCHC 34.0 RDW Std Deviation 44.0 Plt Count 249 Neut % (Auto) 71 Lymph % (Auto) 16 [place] % (Auto) 12 Eos % (Auto) 0 Baso % (Auto) 0 Neut # (Auto) 9.3 H Lymph # (Auto) 2.1 [place] # (Auto) 1.6 H Eos # (Auto) 0.0 Baso # (Auto) 0.0 Immature Gran # (Auto) 0.05 H Absolute Nucleated RBC 0.00 Immature Gran % 0 Nucleated RBC % 0 Assessment & Plan Problem List (1) Normal labor and delivery: Status: Acute Assessment Comment Assessment comment: 24 hr pp Plan Comment Plan Comment: Patient discharged today. Patient will board until baby is discharged home. Discussed danger signs symptoms signs of infection. I discussed ER precautions. Patient can take vitamins and iron at home. Tylenol ibuprofen for pain. Return in 3 weeks Time Spent With Patient Time: Total time spent is greater than 50% in coordination of care (as documented) at patient's floor/unit and/or counseling patient:
--- NOTE | 2024-10-07 08:25 | ESDS_ITS ---
DS: Providers Provider Date of admission: 10/05/24 11:29 Primary care physician: Physician No Primary/Family Admitting Provider: Rosanna Wahl MD Attending Provider on Admission: Montse Howe CNM Consults: 10/06/24 07:04 Referral Routine Comment: Attending Provider on DC: Montse Howe CNM Discharging Provider: Montse Howe CNM DS: Diagnosis Problem List Completed Was Problem List Reviewed/Reconciled?: Yes Summary/Hosp Course Brief History: This is a 24-year-old 2 para 1 admit to labor and delivery for induction of labor. Patient is been followed at [facility] medical clinic. She was a transfer of care from [facility] work at 29 weeks. Semester. January 11, 2024. Estimated due date October 18, 2024. Patient had a 21-week ultrasound in May at [facility] that confirmed dates. Patient then had an ultrasound on September [address] Cruz that showed the baby growing in the 12 percentile overall but the AC measured 2.[address] Alvarez sent the patient in to be induced because of intrauterine growth restriction. Patient denies social habits. Denies surgery. Denies chronic illness. Patient is O+, antibody screen negative, RPR nonreactive, rubella immune, hepatitis B negative, hep C negative, HIV negative, GC and Chlamydia were negative. 1 hour GTT normal. NIPT and carrier screens were normal. And GBS negative Peripartum Data Delivery Method: Normal Vaginal Delivery Episiotomy Description: None (intact) Laceration Description: yes (perienal) complications: none Time Spent with Patient Time attestation: Total time spent providing and/or coordinating discharge services: Exam Vital Signs Temp Pulse Resp BP Pulse Ox O2 Del Method 98.1 F 74 16 113/69 98 Room Air 10/07/24 04:00 10/07/24 04:00 10/07/24 04:00 10/07/24 04:00 10/07/24 04:00 10/07/24 04:00 Discharge Plan Plan Patient Disposition: HOME (Self Care) Patient condition on transfer: Stable Prescriptions/Referrals Prescriptions/Med Rec: No Action Vitamin Tablet 1 tab PO QDAY Referrals: No Primary/Family,Physician [Primary Care Provider] - Patient/Caregiver Discharge Instructions Meds to Beds: No Discharge Activity: resume usual activities Print Language: Kazakh Activity Restrictions/Additional Instructions: Discharge home.. Patient able to board while baby is in the NICU. Take vitamins and iron at home. Tylenol ibuprofen for pain. Discussed danger signs symptoms and signs of infection. ER precautions. Hydrate. Return in 3 weeks visit Stand Alone Forms: Kayy Award Info., Patient Portal Info Letter Discharge Order Discharge Orders: Discharge (Routine); Ordered 10/07/24 Ordered By: Montse Howe Planned Discharge Date 10/07/24
[2024-10-07 09:35] VITALS: BP 111/70; PULSE 82; RESP 16; TEMP 36.7; O2SAT 97
[2024-10-07] MEDS: DOCUSATE SOD 100 MG CAPSULE PO (09:39)
--- NOTE | 2024-10-07 09:43 | PC.NURSE ---
IV DC, CATHETER INTACT, PT TOLERATED WELL.
--- NOTE | 2024-10-07 10:35 | PC.NURSE ---
PATIENT REFUSED MMR AND TDAP VACCINE.
== END 2024-10-07 09:47 | disposition home or self-care (01) | DRG 560 ==
LOC: S4SX 10-06 06:27 → S4NX 10-06 09:02
PROVIDERS: Admitting Provider Obstetrics & Gynecology; Visit Provider Advanced Practice Midwife
DX: O36.5930 Maternal care for other known or suspected poor fetal growth, third trimester, not applicable or unspecified (principal); Z37.0 Single live birth; Z3A.38 38 weeks gestation of pregnancy
CPT/HCPCS: 36415; 59409; 76805; 85025; 86780; 86850; 86900; 86901; 94762; J2210; J2590; J2795; J3010; J3490; J7120; S0191; A9270

== ENCOUNTER 2024-10-27 11:29 | Outpatient (AMB) | payer MEDICAID, SELFPAY ==
[2024-10-27 11:50] VITALS: BP 116/77; PULSE 70; RESP 17; TEMP 36.4; O2SAT 97; BMI 31.6
--- NOTE | 2024-10-27 11:50 | AMBOBPPN_ITS ---
Vital Signs 10/27/24 11:50 Height 1.65 m Height Method Measured Weight 86.353 kg Weight Measurement Method Standing Scale BMI 31.6 BP 116/77 Blood Pressure Source Automatic Cuff Blood Pressure Location Right Upper Arm Position Sitting Respiration 17 Pulse 70 Pulse Source Monitor Temp 97.6 F Temp Source Temporal Artery Scan Pulse Oximetry (%) 97 Oxygen Delivery Method Room Air Allergies/Home Meds Allergies & Medications Allergies No Known Allergies Allergy (Verified 10/27/24 11:51) Medication Reconciliation prenat.vits,ambrosio,qqn-mzyl-onpln 1 tab PO QDAY 08/13/20 [History Confirmed ] Intake Visit Data Collection New Patient or Established: Established Patient (seen at [facility] within 3 years) Reason for Visit:: POST Consent obtained for Telemed Visit: No Seen by Clinical Staff ONLY (RN/MA): No Adult Care Provider Required: No Do You Feel Safe at Home: Yes Authorities Contacted: N/A PCP or OBGYN visit in last 3 months: Yes Date of Last PCP or OBGYN visit: 10/07/24 Hx Now: No Are you currently on any form of Control: No Pain Present Currently: No Pain Scale Used: Ortega-Ivy/Numerical Pain scale:: 0 Smoking Status Smoking Status: Never 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 [employer]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: Past Medical History Past Medical History: No Hx Neurological Disorders, No Hx Cardiac Disorders, No Hx Cancer, No Hx Blood Disorders, No Hx Gastrointestinal Disorders, No Hx Renal Disease, No Hx Diabetes Mellitus Type 1 and No Hx Diabetes Mellitus Type 2 Questionnaires Covid-19 Vaccine Questionnaire Has patient been vacinated for Covid-19 Have you been vacinated for Covid-19: No Social History Living Situation History Lives With: Family Housing: House Tobacco History Smoking Status: Never smoker Second Hand Smoke Exposure: No Alcohol History Alcohol Intake: Never Domestic Abuse History Do You Feel Safe at Home: Yes EPDS - PP Depression Screening Decker Pospartum Depression Screen I have been able to laugh and see the funny side of things: (0) As much as I always could I have looked forward with enjoyment to things: (0) As much as I ever did I have blamed myself unnecessarily when things went wrong: (0) No, never I have been anxious or worried for no good reason: (0) No, not at all I have felt scared or panicky for no very good reason: (0) No, not at all Things have been getting on top of me: (0) No, I have been coping as well as ever I have been so unhappy that I have had difficulty sleeping: (0) No, not at all I have felt sad or miserable: (0) No, not at all I have been so unhappy that I have been crying: (0) No, never The thought of harming myself has occurred to me: (0) Never Care OB Visit Log OB Flowsheet Initial Weight: Not Recorded Date -?-?-?-?-?-?-?-?-?-?-?-?- EGA Weight BP Alb Glu CTX Pres Fundal ht FHR Mov Dilation Station Effacement Hx Notes Visit Note 07/28/24 -?-?-?-?-?-?-?-?-?-?-?-?- 28w 2d 90.038 kg 116/70 absent cephalic 29 145 active 23-year-old 2 para 1 transfer from [facility]. Patient had her first visit in the first trimester. Her last period January 05, 2025. EDC October 10, 2024. Records are not in the chart but patient reports that she has had a medical release to have the records sent. Reports movement. Denies labor. I called [facility] for patient's last ultrasound that was done June 09. I encourage fluids and I gave comfort measures for third trimester discomforts. Patient refused Tdap today. And I discussed labor precautions. Patient to return in 3 weeks for OB check. 08/18/24 -?-?-?-?-?-?-?-?-?-?-?-?- 31w 2d 87.657 kg 109/70 occasional cephalic 31 135 increased BH, no LOF,no VB, fetus active reviewed dates, [facility] sono: 3edd 10/21/24. sono for growth NV, hydrate. discuss PTL precaution, schedule with OB PP for BTL. ok to sign BTL consent in case of primary c/s. refused TDAP. will call for records. discuss PTL precaution and fkc biD. RTC 2 week OBC 09/01/24 -?-?-?-?-?-?-?-?-?-?-?-?- 33w 2d 88.904 kg 109/67 occasional cephalic 33 135 active increased ayaka ick, no VB or LOF, fetus active. patient desire BTL refused TDAP schedule sono for growth, discuss ptl precaution, hydrate. f/u with OB for tubal consent. rtc 4 week OBC and GBS 09/16/24 -?-?-?-?-?-?-?-?-?-?-?-?- 35w 3d 89.471 kg 113/67 occasional cephalic 36 140 active No CTX/LOF/VB, reports good FM. FHR 130?135. GBS swab performed FU with CNM 09/23. Advised to monitor for labor signs including CTX, LOF, VB, ?FM and present to L&D if any occur. 09/23/24 -?-?-?-?-?-?-?-?-?-?-?-?- 36w 3d 91.172 kg 120/77 occasional cephalic 37 145 active fetus active, increase pressure, gbs last visit, discuss fkc bid and labor precaution, denies leaking or bleeding per patient, GBS done last visit, r/s mfm sono for growth to Dr Cruz, discuss labor precaution and fkc, discuss danger s/s and ER precaution 10/01/24 -?-?-?-?-?-?-?-?-?-?-?-?- 37w 4d 90.265 kg 121/77 occasional cephalic 37 140 active fetus active, denies VB,leaking,bleeding. MFM with Dr Cruz: overall EFW 12%. AC: 2.7%. Normal doppler. patient had NST/BPP 09/30 in [facility]. patient was not kept for AOL. No sono results were available with reults. results in chart today. reviewed with OB and discuss with patient. patient scheduled for IOL 10/04. NST/bpp bi weekly, schedule IOL 10/04/next available. review fkc bid, discuss labor precaution TYRESE Calculator Estimated Delivery Date Method Current WG Current Estimate 10/18/24 Ultrasound #1 41w 2d Other Estimates 10/12/24 LMP (Certain) 42w 1d Notes Visit Date: 09/01/24 Last Updated by: Montse Howe CNM 23 y0 EDC 10/18/24. /330, A1: 5.3, rpr:: NR, 1 hr gtt [id number]-,CF-O+,abs-, rpr;;nr, HBSAG-,HIV-, HC-, rub imm, GC/CT-, UT-, pap neg Visit Date: 08/18/24 Last Updated by: Montse Howe CNM MFM sono 06/09/24: 21w2. EDC : 10/20/24(CEDD). 23 yo Visit Date: 07/28/24 Last Updated by: Montse Howe CNM 23 yo . lmp 01/05/25. EDC 10/10/24 HPI Interval History: 24 yo for 3 week pp. 10/06/24, baby boy5-8, bottle. sibling adjusting. father involved. iOL at 38 week for IUGR. plans to use Nexplanon. used in past, no problem. No PMH,no social habit,no surgery. No interval complaints. 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 Lungs clear no wheezes. Abdomen is soft nontender. Uterus well involuted. Perineum is intact no lacerations. No swelling. Small lochia. Negative Homans' sign. 2+ DTRs. No edema no swelling. Breasts are soft General Limitations: no limitations General Appearance: alert, in no apparent distress, comfortable, cooperative, healthy appearing, well developed and well groomed Head Head exam: atraumatic, normocephalic and normal inspection ENT ENT exam: Present normal exam, normal oropharynx and mucous membranes moist Resp Respiratory exam: Present normal lung sounds bilaterally Card Cardiovascular exam: Present regular rate, normal rhythm and normal heart sounds External exam: Present normal external exam Speculum exam: Present normal speculum exam Bimanual exam: Present normal bimanual exam Psych Psychiatric exam: Present normal affect and normal mood Office Procedures OB Clinic LOC & Office Proc's Nursing/Assessment Patient Status: Established Patient OB Clinic Nursing Assessment: Medication Reconciliation, Update PMH in EMR and Vital Signs OB Clinic Coordination of Care: Complex Care and Chronic Disease 1-5, Consent,records obtained, informed consent, Education Simp Pt/Fam, Results/Orders obtained and Staff clarify orders Established Patient Charge Established Patient Point Assignment: 90 Post Follow-up Visit Post Follow up Visit: Yes Assessment & Plan Diagnosis / Problem List (1) 2 weeks follow-up: Status: Acute Plan discuss nexplanon insert. review method and side effect. no sex, continue PNV. discus side effect and effectiveness. RTC for insert Care Reviewed delivery summary and any complications: Yes Uterus involuted to: 3 below Perineal / incision healing noted: Yes Screened for depression: Yes Depression counseling provided: No Discussed family planning & contraception: Yes Contraception planned: nexplanon Counseling on safe resumption of sexual activity: Yes Counseling on gradual excercise: Yes Discussed and concerns (describe), provided support: No Referred to legal service specialist: No Counseled on good nutrition, hydration, and self care: Yes Chronic & current problems reconciled on problem list: Yes Infant care discussed; questions answered: feeding Follow up: routine/prn Additional counseling & anticipatory guidance provided: no sex, review nexplanon and insert. rtc for 6 week pp and insert
== END 2024-10-27 12:13 | disposition home or self-care (01) ==
LOC: HODSOBC 11:29
PROVIDERS: Supervising Provider Advanced Practice Midwife; Visit Provider Advanced Practice Midwife
DX: Z39.2 Encounter for routine postpartum follow-up (principal)
CPT/HCPCS: Z1038

== ENCOUNTER 2024-11-27 10:41 | Outpatient (AMB) | payer MEDICAID, SELFPAY ==
--- NOTE | 2024-11-27 10:54 | GYNCLNT_ITS ---
Vital Signs 11/27/24 10:55 Height 1.65 m Height Method Stated Weight 86.693 kg Weight Measurement Method Standing Scale BMI 31.8 BP 113/71 Blood Pressure Source Automatic Cuff Blood Pressure Location Left Upper Arm Position Sitting Respiration 16 Pulse 79 Pulse Source Monitor Temp 97.2 F Temp Source Oral Pulse Oximetry (%) 98 Oxygen Delivery Method Room Air Allergies/Home Meds Allergies & Medications Allergies No Known Allergies Allergy (Verified 11/27/24 10:56) Medication Reconciliation prenat.vits,ambrosio,[id number] 1 tab PO QDAY 08/13/20 [History Confirmed 11/27/24] Intake Visit Data Collection New Patient or Established: Established Patient (seen at [facility] within 3 years) Reason for Visit:: OBC Seen by Clinical Staff ONLY (RN/MA): No Contact Center Specialist Required: No Do You Feel Safe at Home: Yes Authorities Contacted: N/A PCP or OBGYN visit in last 3 months: Yes Date of Last PCP or OBGYN visit: 10/27/24 Hx Now: No Are you currently on any form of Control: No Pain Present Currently: No Pain Scale Used: Ortega-Ivy/Numerical Pain scale:: 0 Smoking Status Smoking Status: Never smoker 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 Menstrual regularity: regular Flow: normal Monthly: Yes Age at menarche: 14 Menopausal: No Currently sexually active: Yes 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 1. Little interest or pleasure in doing things: not at all 2. Feeling down, depressed, or hopeless: not at all Total score: 0 PHQ-9 3. Trouble falling or staying asleep, or sleeping too much: Not at all 4. Feeling tired or having little energy: Not at all 5. Poor appetite or overeating: Not at all 6. Feeling bad about yourself - or that you are a failure or have let yourself or your family down: Not at all 7. Trouble concentrating on things, such as reading the newspaper or watching television: Not at all 8. Moving or speaking so slowly that other people could have noticed? - Or the opposite - being so fidgety or restless that you have been moving around a lot more than usual: not at all 9. Thoughts that you would be better off or of hurting yourself in some way: Not at all Total score: 0 If you checked off any problems, how difficult have these problems made it for you to do your work, take care of things at home, or get along with other people?: not difficult at all Source: Developed by Drs. Vikram Zaman, Amaya Cantu, Attila Lopez and colleagues, with an educational elizabeth from [employer]. Depression screen completed yes Social History Living Situation History Lives With: Family Housing: House Tobacco History Smoking Status: Never smoker Second Hand Smoke Exposure: No Alcohol History Alcohol Intake: Never Domestic Abuse History Do You Feel Safe at Home: Yes History of Present Illness HPI Narrative 24-year-old 2 para 1 for Nexplanon insert. Patient had a vaginal October 06, 2024. So she is 7 weeks no sex for 3 months. She has been breast-feeding. No resumption of menstruation. Due to breast-feeding. Denies social habits. Denies surgery. Denies chronic illness. Patient has no interval complaints. No complaints of vaginitis. Patient used Nexplanon in the past and she was happy with the method at that time when using it Review of Systems Review of Systems Systems Reviewed: All systems reviewed, normal except as documented Exam General Limitations: no limitations General Appearance: alert, in no apparent distress, comfortable, cooperative, healthy appearing, well developed and well groomed Head Head exam: atraumatic, normocephalic and normal inspection Chest Chest inspection: Present normal inspection and symmetric chest wall rise Resp Respiratory exam: Present normal lung sounds bilaterally Card Cardiovascular exam: Present regular rate, normal rhythm and normal heart sounds Abdominal Abdominal exam: Present soft and normal bowel sounds Psych Psychiatric exam: Present normal affect and normal mood Results Objective Laboratory: neg preg test Office Procedures OB Clinic LOC & Office Proc's Nursing/Assessment Patient Status: Established Patient OB Clinic Nursing Assessment: Medication Reconciliation, Update PMH in EMR and Vital Signs OB Clinic Coordination of Care: Education Complex Pt/Fam, Consent,records obtained, informed consent, Lab and Imaging orders, Results/Orders obtained and Staff clarify orders Established Patient Charge Established Patient Point Assignment: 85 In Clinic Procedures Insertion of Control other NOT IUD's: Yes Results Urine HCG Urine HCG Negative Last Edit by Fanta Spencer MA on 11/27/24 10:59 Assessment & Plan Diagnosis / Problem List (1) Nexplanon insertion: Status: Acute Plan Consent for Nexplanon insert. Reviewed danger signs and symptoms and side effects of Nexplanon. I discussed Nexplanon insert procedure with patient and she stated understanding. Condoms for 2 weeks. Discussed wound care. Dry x 3 days. And return as needed. 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 Negative test. Betadine cleanse of left forearm. 2 cc 1% lidocaine injected into insert site. Insert Nexplanon capsule using applicator. Small amount of bleeding at site. Band-Aid was placed and t hen pressure dressing placed patient. tolerated procedure well
[2024-11-27 10:55] VITALS: BP 113/71; PULSE 79; RESP 16; TEMP 36.2; O2SAT 98; BMI 31.8
== END 2024-11-27 13:35 | disposition home or self-care (01) ==
LOC: HODSOBC 10:41
PROVIDERS: Supervising Provider Advanced Practice Midwife; Visit Provider Advanced Practice Midwife
DX: Z30.017 Encounter for initial prescription of implantable subdermal contraceptive (principal)
CPT/HCPCS: 11981; 96372; J3490; J7301